=== PATIENT | male | born 1960 | race Caucasian/White ===

== ENCOUNTER 2016-10-21 15:55 | Inpatient (IN) | payer OTHER ==
[~2016-10-21] VITALS: Ht 188 cm; Wt 105.0 kg
[~2016-10-21 15:55] MED LIST: ASPI325T PO; ATOR80TA PO; BISA5TAB PO; CLOP75 PO; ESCI10TA PO
[2016-10-21 16:00] VITALS: BP 120/73; PULSE 75; RESP 16; RESP 20; TEMP 98.3; O2SAT 90; O2SAT 97
[2016-10-21] MEDS ORDERED: SODIUM CHLORIDE 0.9% FLUSH 5 ML FLUSH IVF PRN ×2 (16:00→17:30)
[2016-10-21] MEDS ORDERED: PLAV75TA29 PO (16:50)
[2016-10-21] MEDS ORDERED: ASPI81CH37 CHEW (16:50)
[2016-10-21] MEDS ORDERED: ATOR1TAB18 PO (16:50)
[2016-10-21] MEDS ORDERED: LAMO25CH CHEW (16:50)
--- NOTE | 2016-10-21 16:52 | PD ---
HPI Chief Complaint: Seizure Time Seen by Provider: 15:58 Travel History International Travel<30 days: No Contact w/Intl Traveler<30days: No Traveled to known affect area: No History of Present Illness HPI 56-year-old male with history of ASD status post repair, CVA in 2014 with right- sided deficits, brought in by a home after an apparent seizure. The patient does not have history of seizures. The patient's sister and the patient 's mother who witnessed the event described generalized shaking and eyes rolling to the back of his head. This lasted for a few minutes. When EMS arrived the patient's mental status was slightly depressed. Blood glucose was 130. The patient has history of a facial and is unable to provide history. He says no when asked if he has pain anywhere. According to the patient's family who is present, the patient is at his baseline mental status. He has not had any fever or recent illness. He was started on Lomotigrine and took his first dose yesterday for neuropathy. PFSH Past Medical History Cerebrovascular Accident: Yes (CVA 2014 R SIDED DEFICIT ) Diminished Hearing: No Hypertension: Yes Past Surgical History Surgical History: No Previous Surgery Social History Alcohol Use: No Tobacco Use: No Substance Use: No Allergies-Medications (Allergen,Severity, Reaction): Coded Allergies: Penicillin (Verified Allergy, Unknown, 10/21/16) Reported Meds & Prescriptions Reported Meds & Active Scripts Active Reported Atorvastatin (Atorvastatin Calcium) 80 Mg Tab 80 Mg PO HS Lamotrigine 25 Mg Chew 25 Mg CHEW DAILY Aspirin Low Dose (Aspirin) 81 Mg Chew 81 Mg CHEW DAILY Plavix (Clopidogrel Bisulfate) 75 Mg Tab 75 Mg PO DAILY Review of Systems Except as stated in HPI: all other systems reviewed are Neg Physical Exam Narrative GENERAL: Well-developed, well-nourished, awake, alert, no acute distress. SKIN: Warm and dry. No lacerations, abrasions, or ecchymosis. HEAD: Atraumatic. Normocephalic. EYES: Pupils equal and round. No scleral icterus. No injection or drainage. ENT: Mucous membranes pink and moist. Small tongue laceration. NECK: Trachea midline. No JVD. No nuchal rigidity. CARDIOVASCULAR: Regular rate and rhythm. RESPIRATORY: No accessory muscle use. Clear to auscultation. Breath sounds equal bilaterally. GASTROINTESTINAL: Abdomen soft, non-tender, nondistended. : Evidence of urinary incontinence. MUSCULOSKELETAL: No obvious deformities. No clubbing. No cyanosis. No edema. NEUROLOGICAL: Awake and alert. No obvious cranial nerve deficits. Right upper and lower extremity weakness. Normal range of motion in left upper and lower extremity. Data Data Last Documented VS Vital Signs Date Time Temp Pulse Resp B/P Pulse Ox O2 Delivery O2 Flow Rate FiO2 10/21/16 16:00 16 97 Nasal Cannula 3 10/21/16 16:00 98.3 75 120/73 Orders Complete Blood Count With Diff (10/21/16 15:58) Electrocardiogram (10/21/16 ) Ct Brain W/O Iv Contrast(Rout) (10/21/16 ) Ecg Monitoring (10/21/16 15:58) Iv Access Insert/Monitor (10/21/16 15:58) Oximetry (10/21/16 15:58) Comprehensive Metabolic Panel (10/21/16 15:58) Sodium Chloride 0.9% Flush (Ns Flush) (10/21/16 16:00) Urinalysis - C+S If Indicated (10/21/16 15:58) Prothrombin Time / Inr (Pt) (10/21/16 15:58) Act Partial Throm Time (Ptt) (10/21/16 15:58) Cath For Specimen (10/21/16 16:00) Labs Laboratory Tests Test 10/21/16 16:10 White Blood Count 8.3 TH/MM3 Red Blood Count 4.92 MIL/MM3 Hemoglobin 15.4 GM/DL Hematocrit 45.0 % Mean Corpuscular Volume 91.5 FL Mean Corpuscular Hemoglobin 31.2 PG Mean Corpuscular Hemoglobin 34.2 % Concent Red Cell Distribution Width 12.9 % Platelet Count 256 TH/MM3 Mean Platelet Volume 8.4 FL Neutrophils (%) (Auto) 77.1 % Lymphocytes (%) (Auto) 17.1 % Monocytes (%) (Auto) 4.4 % Eosinophils (%) (Auto) 1.1 % Basophils (%) (Auto) 0.3 % Neutrophils # (Auto) 6.4 TH/MM3 Lymphocytes # (Auto) 1.4 TH/MM3 Monocytes # (Auto) 0.4 TH/MM3 Eosinophils # (Auto) 0.1 TH/MM3 Basophils # (Auto) 0.0 TH/MM3 CBC Comment DIFF FINAL Differential Comment MDM Medical Decision Making Medical Screen Exam Complete: Yes Emergency Medical Condition: Yes Medical Record Reviewed: Yes Differential Diagnosis Seizure, intracranial abnormality, electrolyte abnormality, meningitis/ encephalitis unlikely Narrative Course Vital signs show heart rate 75, blood pressure 120/73, pulse ox 90% on room air , 97% on 3 L nasal cannula, oral temp of 98.3F. Shortly after the patient arrived to the emergency department the case was discussed with [facility] hospitalist Dr. Molina. The patient be admitted to his service. He and his PA will follow-up with all results. Diagnosis Primary Impression: New onset seizure Admitting Information Admitting Physician Requests: Admit Carlos Franklin MD Oct 21, 2016 16:52
[2016-10-21 16:55] LABS: AUTOMATED NEUTROPHIL # 6.4 TH/MM3 (1.8-7.7); BASOPHIL % 0.3 % (0.0-2.0); EOSINOPHIL # 0.1 TH/MM3 (0-0.4); EOSINOPHIL % 1.1 % (0.0-4.0); HEMO FLAGS DIFF FINAL; LYMPH % 17.1 % (9.0-44.0); LYMPHOCYTE # 1.4 TH/MM3 (1.0-4.8); MEAN CELL VOLUME 91.5 FL (80.0-100.0); MEAN CORPUSCULAR HEMOGLOBIN 31.2 PG (27.0-34.0); MEAN CORPUSCULAR HGB CONC 34.2 % (32.0-36.0); MONO % 4.4 % (0.0-8.0); NEUT % 77.1 % (16.0-70.0); PLATELET COUNT 256 TH/MM3 (150-450); RED BLOOD COUNT 4.92 MIL/MM3 (4.50-5.90); RED CELL DISTRIBUTION WIDTH 12.9 % (11.6-17.2); WHITE BLOOD COUNT 8.3 TH/MM3 (4.0-11.0)
--- NOTE | 2016-10-21 17:07 | RADRPT ---
EXAM DATE/TIME: 10/21/2016 16:56 [facility] COMPARISON: No previous studies available for comparison. INDICATIONS : Altered mental status; possible seizure. RADIATION DOSE: 41.59 CTDIvol (mGy) MEDICAL HISTORY : Cerebrovascular disease. Cardiovascular disease Hypertension. SURGICAL HISTORY : None. ENCOUNTER: Initial ACUITY: 1 day PAIN SCALE: Non-responsive LOCATION: cranial TECHNIQUE: Multiple contiguous axial images were obtained of the head. Using automated exposure control and adj ustment of the mA and/or kV according to patient size, radiation dose was kept as low as reasonably a chievable to obtain optimal diagnostic quality images. FINDINGS: There is encephalomalacia involving the left temporoparietal lobe consistent with old left middle cer ebral artery infarction. Focal area of decreased attenuation is noted within the right high parietal subcortical white matter consistent with old lacunar infarct or small vessel ischemic disease. There is no acute hemorrhage, midline shift or extra-axial fluid collections. No acute infarction is noted. The ventricles, sulci and cisterns are unremarkable. CONCLUSION: 1. Encephalomalacia involving the left temporoparietal lobe consistent with old left middle cerebral artery infarction. 2. Focal area of decreased attenuation is noted within the right high parietal subcortical white fernandez er consistent with old lacunar infarct or small vessel ischemic disease. 3. No acute hemorrhage, acute infarct, midline shift or extra-axial fluid collections. Adama Berger MD on October 21, 2016 at 17:02 Board Certified Radiologist. This report was verified electronically.
[2016-10-21 17:08] LABS: INTERNATIONAL NORMALIZED RATIO 1.1 RATIO; PROTHROMBIN TIME - PATIENT 12.1 SEC (9.8-11.6)
[2016-10-21 17:16] LABS: APTT (PATIENT) 19.1 SEC (24.3-30.1)
[2016-10-21 17:26] LABS: ALT (GPT) 35 U/L (12-78); ANION GAP 11 MEQ/L (5-15); AST (GOT) 27 U/L (15-37); BICARBONATE 22.4 MEQ/L (21.0-32.0); BLOOD UREA NITROGEN 13 MG/DL (7-18); CHLORIDE 107 MEQ/L (98-107); GLOMERULAR FILTRATION RATE 57 ML/MIN (>89); SODIUM (NA) 140 MEQ/L (136-145)
[2016-10-21 17:28] LABS: ALKALINE PHOSPHATASE 88 U/L (45-117); TOTAL BILIRUBIN ADULT 0.6 MG/DL (0.2-1.0)
[2016-10-21] MEDS ORDERED: ONDANSETRON HCL 4 MG/2 ML VIAL IV PRN ×2 (17:30→18:00)
[2016-10-21] MEDS ORDERED: LORazepam 2 MG/ML VIAL IV PRN (17:30)
[2016-10-21 17:32] LABS: POTASSIUM 4.2 MEQ/L (3.5-5.1)
--- NOTE | 2016-10-21 17:43 | RADRPT ---
EXAM DATE/TIME: 10/21/2016 17:20 [facility] COMPARISON: CHEST PA & LAT, March 24, 2016, 22:34. INDICATIONS : Short of breath, cough. MEDICAL HISTORY : Cerebrovascular disease. Cardiovascular disease. Hypertension. SURGICAL HISTORY : None. ENCOUNTER: Initial ACUITY: 1 day PAIN SCORE: 0/10 LOCATION: Bilateral chest FINDINGS: The heart and mediastinal structures are normal. The pulmonary vascular pattern is also normal. The lungs are clear. CONCLUSION: No acute cardiopulmonary disease. Adama Berger MD on October 21, 2016 at 17:29 Board Certified Radiologist. This report was verified electronically.
--- NOTE | 2016-10-21 17:54 | HHI.HP ---
HPI Service [facility] Hospitalists Primary Care Physician Oskar Soto MD Admission Diagnosis new onset seizure Chief Complaint: Seizure Travel History International Travel<30 Days: No Contact w/Intl Traveler <30 Da: No Traveled to Known Affected Are: No History of Present Illness Mr. 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 Pt found to have a PFO which was felt to be probable source for his embolic CVA and underwent cardiac cath with closure of PFO with Amplatzer intr-atrial cribriform septal occluder device on 03/24/[address] Alexandre. Pt was brought to the ED on 10/21/16 after an apparent seizure. Pts family who is present at bedside and provides the history, reports that after lunch today the pt was sitting in his lounge chair and his sister heard a gurgling noise from the kitchen and when she checked on the pt his leg was tense and sticking straight out and his arms were spasming back and forth and his eyes were rolled back in his head. This lasted a few minutes and then ceased. The pt was "out of it" and somewhat confused even when EMS arrived. Pts family denies any hx of seizures previously. He was started on Lamotrigine 25mg yesterday for neuropathic pain by pain management. Pts family reports that he took one dose last night. Pt had a Head CT in the ER which noted encephalomalacia involving the left temporoparietal lobe consistent with old left middle cerebral artery infarction , focal area of decreased attenuation is noted within the right high parietal subcortical white matter consistent with old lacunar infarct or small vessel ischemic disease. 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 -Trace mitral regurgitation -Mild thickening of the aortic valve -Structurally normal tricuspid valve with mild regurgitation -PA peak pressure 31.3mmHg -Small pericardial effusion present Past Surgical History Cardiac cath with closure of PFO with Amplatzer intr-atrial cribriform septal occluder device on 03/24/[address] Alexandre Lumbar spine surgery Reported Medications Atorvastatin (Atorvastatin Calcium) 80 Mg Tab 80 Mg PO HS Lamotrigine 25 Mg Chew 25 Mg CHEW DAILY Aspirin Low Dose (Aspirin) 81 Mg Chew 81 Mg CHEW DAILY Plavix (Clopidogrel Bisulfate) 75 Mg Tab 75 Mg PO DAILY Allergies: Coded Allergies: Penicillin (Verified Allergy, Unknown, 10/21/16) Family History Noncontributory Social History No alcohol, tobacco or illicit drug use Physical Exam Vital Signs Vital Signs Date Time Temp Pulse Resp B/P Pulse Ox O2 Delivery O2 Flow Rate FiO2 10/21/16 16:00 16 97 Nasal Cannula 3 10/21/16 16:00 98.3 75 20 120/73 90 Physical Exam GENERAL: This is a well-nourished, well-developed patient, in no apparent distress. HEENT: Atraumatic. Normocephalic. No temporal or scalp tenderness. No scleral icterus. Airway patent. NECK: Trachea midline, supple, nontender. CARDIO: Regular. RESP: CTA bilaterally. No wheezes, rales, or rhonchi. ABD: +BS, soft, non-tender, nondistended. EXT: Extremities without clubbing, cyanosis, or edema. NEURO: Awake and alert. Expressive aphasia. Right sided upper and lower extremity weakness Laboratory Laboratory Tests Test 10/21/16 16:10 White Blood Count 8.3 Red Blood Count 4.92 Hemoglobin 15.4 Hematocrit 45.0 Mean Corpuscular Volume 91.5 Mean Corpuscular Hemoglobin 31.2 Mean Corpuscular Hemoglobin 34.2 Concent Red Cell Distribution Width 12.9 Platelet Count 256 Mean Platelet Volume 8.4 Neutrophils (%) (Auto) 77.1 Lymphocytes (%) (Auto) 17.1 Monocytes (%) (Auto) 4.4 Eosinophils (%) (Auto) 1.1 Basophils (%) (Auto) 0.3 Neutrophils # (Auto) 6.4 Lymphocytes # (Auto) 1.4 Monocytes # (Auto) 0.4 Eosinophils # (Auto) 0.1 Basophils # (Auto) 0.0 CBC Comment DIFF FINAL Differential Comment Prothrombin Time 12.1 Prothromb Time International 1.1 Ratio Activated Partial 19.1 Thromboplast Time Result Diagram: 10/21/16 1610 Imaging Last Impressions Head CT 10/21/16 0000 Signed Impressions: Service Date/Time: Friday, October 21, 2016 16:56 - CONCLUSION: 1. Encephalomalacia involving the left temporoparietal lobe consistent with old left middle cerebral artery infarction. 2. Focal area of decreased attenuation is noted within the right high parietal subcortical white matter consistent with old lacunar infarct or small vessel ischemic disease. 3. No acute hemorrhage, acute infarct, midline shift or extra-axial fluid collections. Adama Berger MD Septic Shock Reassessment Heart: Regular rate and rhythm Lungs: Clear Skin: Warm Peripheral Pulses: Bounding Right Radial Bounding Left Radial Bounding Right Popliteal Bounding Left Popliteal Bounding Right Dorsalis Pedis Bounding Left Dorsalis Pedis Bounding Right Posterior Tibial Bounding Left Posterior Tibial Capillary Refill: <2 seconds Assessment and Plan Problem List: (1) New onset seizure Status: Acute Plan: - Pt admitted with an apparent new onset seizure. 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 - Pt has not had any recent fever or illness - CT Brain (10/21/16) --> Encephalomalacia involving the left temporoparietal lobe consistent with old left middle cerebral artery infarction. Focal area of decreased attenuation is noted within the right high parietal subcortical white matter consistent with old lacunar infarct or small vessel ischemic disease. - Consult Neurology - Unclear if pt can have an MRI with his septal closure device, will need to speak with Dr. Alexandre regarding this. 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 - Pt found to have a PFO which was felt to be probable source for his embolic CVA and underwent cardiac cath with closure of PFO with Amplatzer intr-atrial cribriform septal occluder device on 03/24/[address] Alexandre. - Resume ASA/Plavix (3) Neuropathy Status: Chronic Plan: - Hold Lamotrigine Assessment and Plan Patient examined. Assessment and plan formulated with Maria Ines Jeffries PA-C. I agree with the above. pt with hx pfo and closure, s/p left hemispheric cva and expressive aphasia with right hemiparesis. given lamotrigene for peripheral neuropathy and family says had sz after one dose. he certainly has chronic structural brain changes to put him at risk. no evidence of infection. will observe and neurology pending. hold off on mri unless neurology wants it. hopefully d/c over the weekend if stable. Physician Certification 2 Midnight Certification Type: Admission for Inpatient Services Order for Inpatient Services The services are ordered in accordance with Medicare regulations or non- Medicare payer requirements, as applicable. In the case of services not specified as inpatient-only, they are appropriately provided as inpatient services in accordance with the 2-midnight benchmark. Estimated LOS (days): 2 2 days is the estimated time the patient will need to remain in the hospital, assuming treatment plan goals are met and no additional complications. Post-Hospital Plan: Not yet determined Maria Ines Jeffries Oct 21, 2016 17:53 Yoel Molina MD Oct 21, 2016 21:28
[2016-10-21] MEDS ORDERED: ACETAMINOPHEN 325 MG TAB PO PRN (18:00)
[2016-10-21 18:04] VITALS: BP 121/77; PULSE 68; RESP 20; O2SAT 98
[2016-10-21] MEDS: SODIUM CHLOR 0.9% 1000 ML INJ 1,000 ML IV SCH (18:18)
[2016-10-21 18:52] VITALS: BP 123/79; PULSE 76; RESP 18; TEMP 96.9; O2SAT 96
[2016-10-21 19:10] LABS: BLOOD, URINE TRACE (NEG); GLUCOSE,URINE NEG (NEG); HYALINE CAST, URINE 7 /lpf (RARE); KETONE, URINE 10 mg/dL (NEG); MUCUS URINE FEW /lpf (OCC); NITRITE,URINE NEG (NEG); PH, URINE 5.5 (5.0-8.5); URINE COLOR YELLOW (YELLW/STRAW)
[2016-10-21 19:11] LABS: COMMENT (UR) CATH-CULT NOT IND; CULTURE IF INDICATED CATH CULTURE NOT IND
[2016-10-21 20:31] VITALS: BP 126/80; PULSE 74; RESP 20; TEMP 96.2; O2SAT 97
[2016-10-21] MEDS ORDERED: ATORVASTATIN 80 MG TAB PO SCH (21:00)
[2016-10-21] MEDS: SODIUM CHLORIDE 0.9% FLUSH 5 ML FLUSH IVF SCH (21:30)
[2016-10-22] VITALS: BP 101/61; PULSE 65; RESP 14; TEMP 97.9; O2SAT 98
[2016-10-22 04:00] VITALS: BP 113/70; PULSE 70; RESP 16; TEMP 97.1; O2SAT 98
[2016-10-22] MEDS: SODIUM CHLORIDE 0.9% FLUSH 5 ML FLUSH IVF SCH (07:49)
[2016-10-22] MEDS: SODIUM CHLOR 0.9% 1000 ML INJ 1,000 ML IV SCH (07:50)
[2016-10-22 08:00] VITALS: BP 110/72; PULSE 62; RESP 19; TEMP 96.4; O2SAT 97
[2016-10-22] MEDS ORDERED: CLOPIDOGREL 75 MG TAB PO SCH (09:00)
[2016-10-22] MEDS ORDERED: ASPIRIN 81 MG CHEW TAB CHEW SCH (09:00)
--- NOTE | 2016-10-22 11:19 | HHI.DCPOC ---
Discharge Care Plan Diagnosis: (1) New onset seizure (2) History of CVA with residual deficit (3) PFO (patent foramen ovale) (4) Neuropathy Goals to Promote Your Health * To prevent worsening of your condition and complications * To maintain your health at the optimal level Directions to Meet Your Goals Take your medications as prescribed Follow your dietary instruction Follow activity as directed Keep your appointments as scheduled Take your immunizations and boosters as scheduled If your symptoms worsen call your PCP, if no PCP go to Urgent Care Center or Emergency Room Smoking is Dangerous to Your Health. Avoid second hand smoke Call the 24-hour hour crisis hotline for domestic abuse at Yoel Molina MD Oct 22, 2016 11:19
--- NOTE | 2016-10-22 11:22 | HHI.PR ---
Subjective Remarks refusing neuro consult and eeg. Objective Vitals lying in bed eager for d/c refusing further tests and demands d/c home Vital Signs Date Time Temp Pulse Resp B/P Pulse Ox O2 Delivery O2 Flow Rate FiO2 10/22/16 08:00 96.4 62 19 110/72 97 10/22/16 04:00 97.1 70 16 113/70 98 10/22/16 00:00 97.9 65 14 101/61 98 10/21/16 20:31 96.2 74 20 126/80 97 10/21/16 18:52 96.9 76 18 123/79 96 10/21/16 18:04 68 20 121/77 98 Nasal Cannula 3 10/21/16 16:00 16 97 Nasal Cannula 3 10/21/16 16:00 98.3 75 20 120/73 90 10/21/16 10/21/16 10/22/16 15:00 23:00 07:00 Output Total 200 ml Balance -200 ml Output Urine Total 200 ml Result Diagram: 10/21/16 1610 10/21/16 1610 Imaging Last Impressions Head CT 10/21/16 0000 Signed Impressions: Service Date/Time: Friday, October 21, 2016 16:56 - CONCLUSION: 1. Encephalomalacia involving the left temporoparietal lobe consistent with old left middle cerebral artery infarction. 2. Focal area of decreased attenuation is noted within the right high parietal subcortical white matter consistent with old lacunar infarct or small vessel ischemic disease. 3. No acute hemorrhage, acute infarct, midline shift or extra-axial fluid collections. Adama Berger MD A/P Problem List: (1) New onset seizure Status: Acute Plan: - Pt admitted with an apparent new onset seizure. 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 Focal area of decreased attenuation is noted within the right high parietal subcortical white matter consistent with old lacunar infarct or small vessel ischemic disease. - pt at baseline; refusing eeg and neuro consult. family here to take him home. 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 - Pt found to have a PFO which was felt to be probable source for his embolic CVA and underwent cardiac cath with closure of PFO with Amplatzer intr-atrial cribriform septal occluder device on 03/24/[address] Alexandre. - Resume ASA/Plavix (3) Neuropathy Status: Chronic Plan: - Hold Lamotrigine Yoel Molina MD Oct 22, 2016 11:22
--- NOTE | 2016-10-22 16:08 | EKG ---
Date Performed: 10/21/2016 Time Performed: 16:34:32 PTAGE: 56 years EKG: Sinus rhythm Low voltage Anterior T waves improved compared to prior tracing NORMAL ECG PREVIOUS TRACING : 03/25/2016 06.05 DOCTOR: Ra Crowley Interpretating Date/Time 10/22/2016 16:06:44
== END 2016-10-22 11:54 | disposition home or self-care (01) | DRG 101 ==
LOC: NEPC 15:55 → NEDA 17:12 → N05A 18:37
PROVIDERS: ADMIT Hospitalist; ATTEND Hospitalist
DX: R56.9 Unspecified convulsions (principal); G93.89 Other specified disorders of brain; I69.359 Hemiplegia and hemiparesis following cerebral infarction affecting unspecified side; R47.01 Aphasia; Q21.1 Atrial septal defect; G62.9 Polyneuropathy, unspecified; I10 Essential (primary) hypertension
CPT/HCPCS: 70450; 71010; 80053; 81001; 85025; 85610; 85730; 93005; J7030